=== PATIENT | female | born 1950 | race Two or more races ===

== ENCOUNTER 2017-09-01 01:14 | Emergency (ER) | payer MEDICARE ==
[~2017-09-01] VITALS: Ht 154.9 cm; Wt 59.0 kg
[~2017-09-01 01:14] MED LIST: CITA20TA3 PO; FER325T PO; FLUC100T34 PO; FURO20TA PO; INSLANTI SC; LACT10SO66 PO; MUPI2OIN10 EACHNOSTRI; PANT40T PO; PRO20T PO; SACC250C PO; SPIR100T21 PO; SPIR50TA23 PO
[2017-09-01 01:29] VITALS: BP 151/83
[2017-09-01 01:43] LABS: Eosinophils # (auto) 0.5 uL; Eosinophils % (auto) 7.6 % (0.0-7.0); Hemoglobin 8.2 g/dL (12.2-16.2); Monocytes # (auto) 0.4 uL; Neutrophils # (auto) 4.9 uL; Platelet Count (auto) 136 10^3/uL (140-450)
[2017-09-01 01:45] LABS: Basophils # (auto) 0 uL; Basophils % (auto) 0.6 % (0.0-2.0); Hematocrit 25.2 % (36.0-46.0); Lymphocytes # (auto) 0.9 uL; Lymphocytes % (auto) 13.7 % (10.0-50.0); Mean Corpuscular Hemoglobin 27.3 pg (28.0-32.0); Mean Corpuscular Hgb Conc. 32.6 g/dL (32.0-36.0); Mean Corpuscular Volume 83.8 fL (80.0-100.0); Mean Platelet Volume 8.2 fL (6.9-10.8); Monocytes % (auto) 5.6 % (0.0-12.0); Neutrophils % (auto) 72.5 % (37.0-80.0); Red Cell Distribution Width 15.9 % (11.8-14.3); White Blood Cell 6.7 10^3/uL (4.4-10.8)
[2017-09-01 01:58] LABS: Albumin 2.3 g/dL (3.4-5.0); BUN/Creatinine Ratio 14.9; Calcium 7.8 mg/dL (8.5-10.1); Potassium 4.1 mmol/L (3.5-5.1)
[2017-09-01 02:05] LABS: Bilirubin, Total 0.3 mg/dL (0.2-1.0); Total Protein 7.8 g/dL (6.4-8.2)
== END 2017-09-01 03:40 | disposition left against medical advice (07) ==
LOC: ER 01:14
DX: R10.9 Unspecified abdominal pain (principal); Z53.21 Procedure and treatment not carried out due to patient leaving prior to being seen by health care provider
CPT/HCPCS: 36415; 80053; 82010; 85025

== ENCOUNTER 2017-11-27 02:17 | Inpatient (IN) | payer MEDICARE ==
[~2017-11-27] VITALS: Ht 152.4 cm; Wt 60.6 kg
[2017-11-27] VITALS (11 sets, daily range): BP systolic 138–188; BP diastolic 76–100
[2017-11-27 04:37] LABS: Basophils # (auto) 0 uL; Eosinophils # (auto) 0.2 uL; Lymphocytes # (auto) 0.7 uL; Mean Corpuscular Hemoglobin 26.5 pg (28.0-32.0)
[2017-11-27 04:39] LABS: Eosinophils % (auto) 4.6 % (0.0-7.0); Hematocrit 19.2 % (36.0-46.0); Lymphocytes % (auto) 14.3 % (10.0-50.0); Mean Corpuscular Hgb Conc. 32.4 g/dL (32.0-36.0); Monocytes # (auto) 0.3 uL; Monocytes % (auto) 6.7 % (0.0-12.0); Neutrophils # (auto) 3.5 uL; Neutrophils % (auto) 73.4 % (37.0-80.0); Platelet Count (auto) 104 10^3/uL (140-450); Red Blood Cells 2.34 10^6/uL (4.0-5.20); Red Cell Distribution Width 16.2 % (11.8-14.3); White Blood Cell 4.8 10^3/uL (4.4-10.8)
[2017-11-27 04:42] LABS: Hemoglobin 6.2 g/dL (12.2-16.2)
[2017-11-27 04:56] LABS: INR 1.05 (0.9-1.15); Partial Thromboplastin Time 29.4 sec (22.64-33.71); Prothrombin Time 11.5 sec (9.37-12.3)
[2017-11-27 05:08] LABS: Alanine Aminotransferase 30 U/L (13-56); Albumin 2.5 g/dL (3.4-5.0); Alkaline Phosphatase 326 U/L (45-117); Amylase 57 U/L (25-115); Anion Gap 9 (5-15); Aspartate Aminotransferase 34 U/L (15-37); BUN/Creatinine Ratio 18.9; Bilirubin, Total 0.3 mg/dL (0.2-1.0); Blood Urea Nitrogen 28 mg/dL (7-18); Calcium 7.9 mg/dL (8.5-10.1); Carbon Dioxide 18 mmol/L (21-32); Chloride 108 mmol/L (98-107); GFR African American 45 mL/min; GFR Non-African American 38 mL/min; Glucose 327 mg/dL (74-106); Lipase 173 U/L (73-393); Magnesium 2.4 mg/dL (1.6-2.6); Potassium 3.9 mmol/L (3.5-5.1); Sodium 135 mmol/L (136-145); Total Protein 7.7 g/dL (6.4-8.2)
[2017-11-27] MEDS ORDERED: MORPHINE SULFATE 4 MG/ML SYR/VIAL IV ONE (06:30)
[2017-11-27] MEDS ORDERED: ONDANSETRON HCL 4 MG/2 ML VIAL IV ONE (06:30)
[2017-11-27] MEDS ORDERED: TEMAZEPAM 15 MG CAP PO PRN (09:15)
[2017-11-27] MEDS ORDERED: ONDANSETRON HCL 4 MG/2 ML VIAL IV PRN (09:15)
[2017-11-27] MEDS ORDERED: ACETAMINOPHEN 325 MG TAB PO PRN (09:15)
[2017-11-27] MEDS ORDERED: MORPHINE SULFATE 4 MG/ML SYR/VIAL IV PRN (09:15)
[2017-11-27] MEDS ORDERED: DEXTROSE (50%) 50ML SYRG IV PRN (09:15)
[2017-11-27] MEDS ORDERED: FUROSEMIDE 20 MG TAB PO ONE (09:15)
[2017-11-27] MEDS ORDERED: SPIRONOLACTONE 25 MG TAB PO ONE (09:15)
[2017-11-27] MEDS ORDERED: NITROGLYCERIN 0.4 MG SL TAB SL PRN (09:15)
[2017-11-27] MEDS ORDERED: FAMOTIDINE 20 MG TAB PO SCH (10:00)
[2017-11-27] MEDS: FAMOTIDINE 20 MG TAB PO SCH (10:30)
[2017-11-27] MEDS: LACTULOSE 20Gm/30ML SOLN PO SCH (10:30)
[2017-11-27] MEDS: MULTIPLE VITAMIN TAB PO SCH (10:31)
[2017-11-27 10:50] LABS: Urine Bacteria NONE SEEN /hpf (None Seen); Urine Blood 1+ /uL (Negative); Urine Specific Gravity 1.011 (1.001-1.035); Urine WBC 2 /hpf (0 - 5)
[2017-11-27] MEDS: ACCU-CHEK COMFORT CURVE STRIP VI SCH ×3 (11:43→22:44)
[2017-11-27] MEDS: InsuLIN REG 1unit/0.01ml Soln (100units/ml) SC SCH ×3 (11:49→22:43)
[2017-11-27] MEDS: Boost Glucose Control 8 Ounces PO SCH ×2 (13:04→18:39)
[2017-11-27] MEDS: SODIUM CHLORIDE 0.9% 1,000 ML IV SCH (16:25)
[2017-11-27] MEDS: SPIRONOLACTONE 25 MG TAB PO SCH (17:32)
[2017-11-27] MEDS: FUROSEMIDE 20 MG TAB PO SCH (17:32)
[2017-11-27] MEDS: MORPHINE SULFATE 4 MG/ML SYR/VIAL IV PRN (17:33)
[2017-11-27] MEDS: INSULIN LANTUS (GLARGINE) 1 /0.01ml (100units/ml) SC SCH (22:44)
[2017-11-28] MEDS: SODIUM CHLORIDE 0.9% 1,000 ML IV SCH ×2 (01:27→18:11)
[2017-11-28] MEDS: MORPHINE SULFATE 4 MG/ML SYR/VIAL IV PRN ×2 (03:38→19:55)
[2017-11-28 05:30] VITALS: BP 137/58
[2017-11-28] MEDS: SPIRONOLACTONE 25 MG TAB PO SCH ×2 (06:39→18:10)
[2017-11-28] MEDS: FUROSEMIDE 20 MG TAB PO SCH ×2 (06:40→18:11)
[2017-11-28] MEDS: ACCU-CHEK COMFORT CURVE STRIP VI SCH ×4 (06:40→22:10)
[2017-11-28] MEDS: InsuLIN REG 1unit/0.01ml Soln (100units/ml) SC SCH ×4 (06:40→22:10)
[2017-11-28 08:00] VITALS: BP 132/74
[2017-11-28 08:07] LABS: Basophils # (auto) 0 uL; Basophils % (auto) 0.5 % (0.0-2.0); Eosinophils # (auto) 0.1 uL; Eosinophils % (auto) 2.6 % (0.0-7.0); Hematocrit 28.5 % (36.0-46.0); Hemoglobin 9.5 g/dL (12.2-16.2); Lymphocytes # (auto) 0.8 uL; Lymphocytes % (auto) 15.3 % (10.0-50.0); Mean Corpuscular Hemoglobin 28.2 pg (28.0-32.0); Mean Corpuscular Hgb Conc. 33.4 g/dL (32.0-36.0); Mean Corpuscular Volume 84.6 fL (80.0-100.0); Monocytes # (auto) 0.4 uL; Monocytes % (auto) 8.6 % (0.0-12.0); Neutrophils # (auto) 3.8 uL; Nucleated Red Blood Cells % 0.2 %; Platelet Count (auto) 94 10^3/uL (140-450); Potassium 4.4 mmol/L (3.5-5.1); Red Blood Cells 3.37 10^6/uL (4.0-5.20); Red Cell Distribution Width 16.8 % (11.8-14.3); White Blood Cell 5.2 10^3/uL (4.4-10.8)
[2017-11-28 08:20] LABS: Albumin 2.3 g/dL (3.4-5.0); Bilirubin, Total 0.5 mg/dL (0.2-1.0); Calcium 7.9 mg/dL (8.5-10.1)
[2017-11-28 08:30] VITALS: BP 132/74
[2017-11-28] MEDS: Boost Glucose Control 8 Ounces PO SCH ×3 (10:49→18:10)
[2017-11-28] MEDS: FAMOTIDINE 20 MG TAB PO SCH (10:50)
[2017-11-28] MEDS: LACTULOSE 20Gm/30ML SOLN PO SCH (10:50)
[2017-11-28] MEDS: MULTIPLE VITAMIN TAB PO SCH (10:50)
[2017-11-28 13:00] VITALS: BP 146/72
[2017-11-28 17:00] VITALS: BP 159/76
[2017-11-28 18:29] LABS: Hematocrit 38.1 % (36.0-46.0)
[2017-11-28 21:37] VITALS: BP 136/68
[2017-11-28] MEDS: INSULIN LANTUS (GLARGINE) 1 /0.01ml (100units/ml) SC SCH (22:10)
[2017-11-29] MEDS: MORPHINE SULFATE 4 MG/ML SYR/VIAL IV PRN ×2 (01:39→05:58)
[2017-11-29 05:53] VITALS: BP 111/89
[2017-11-29] MEDS: SPIRONOLACTONE 25 MG TAB PO SCH ×2 (05:57→17:34)
[2017-11-29] MEDS: FUROSEMIDE 20 MG TAB PO SCH ×2 (05:58→17:34)
[2017-11-29] MEDS: ACCU-CHEK COMFORT CURVE STRIP VI SCH ×4 (05:58→22:08)
[2017-11-29] MEDS: InsuLIN REG 1unit/0.01ml Soln (100units/ml) SC SCH ×4 (05:58→22:07)
[2017-11-29] MEDS: Boost Glucose Control 8 Ounces PO SCH ×3 (07:39→17:32)
[2017-11-29 09:00] VITALS: BP 131/65
[2017-11-29] MEDS: MULTIPLE VITAMIN TAB PO SCH (10:35)
[2017-11-29] MEDS: LACTULOSE 20Gm/30ML SOLN PO SCH (10:35)
[2017-11-29] MEDS: FAMOTIDINE 20 MG TAB PO SCH (10:36)
[2017-11-29 11:22] LABS: Basophils # (auto) 0 uL; Basophils % (auto) 0.6 % (0.0-2.0); Eosinophils # (auto) 0.2 uL; Eosinophils % (auto) 4.9 % (0.0-7.0); Hematocrit 28.5 % (36.0-46.0); Hemoglobin 9.5 g/dL (12.2-16.2); Lymphocytes # (auto) 0.8 uL; Lymphocytes % (auto) 16.2 % (10.0-50.0); Mean Corpuscular Hemoglobin 27.8 pg (28.0-32.0); Mean Corpuscular Hgb Conc. 33.2 g/dL (32.0-36.0); Mean Corpuscular Volume 83.6 fL (80.0-100.0); Monocytes # (auto) 0.5 uL; Monocytes % (auto) 11.5 % (0.0-12.0); Neutrophils # (auto) 3.2 uL; Neutrophils % (auto) 66.8 % (37.0-80.0); Platelet Count (auto) 101 10^3/uL (140-450); Red Blood Cells 3.41 10^6/uL (4.0-5.20); Red Cell Distribution Width 16.7 % (11.8-14.3); White Blood Cell 4.7 10^3/uL (4.4-10.8)
[2017-11-29 11:45] LABS: BUN/Creatinine Ratio 20.8; Calcium 7.7 mg/dL (8.5-10.1); Potassium 4.2 mmol/L (3.5-5.1)
[2017-11-29] MEDS: HYDROcodone-ACET 5/325MG TAB PO PRN ×2 (12:16→18:56)
[2017-11-29 13:00] VITALS: BP 123/59
[2017-11-29] MEDS: SODIUM CHLORIDE 0.9% 1,000 ML IV SCH (16:24)
[2017-11-29 17:04] VITALS: BP 115/58
[2017-11-29 20:08] LABS: Hematocrit 28.4 % (36.0-46.0); Hemoglobin 9.3 g/dL (12.2-16.2)
[2017-11-29 22:00] VITALS: BP 116/60
[2017-11-29] MEDS: INSULIN LANTUS (GLARGINE) 1 /0.01ml (100units/ml) SC SCH (22:08)
[2017-11-30] MEDS: HYDROcodone-ACET 5/325MG TAB PO PRN ×3 (00:45→10:51)
[2017-11-30] MEDS: SODIUM CHLORIDE 0.9% 1,000 ML IV SCH ×2 (03:43→18:30)
[2017-11-30 04:53] VITALS: BP 123/67
[2017-11-30] MEDS: FUROSEMIDE 20 MG TAB PO SCH ×2 (06:31→17:30)
[2017-11-30] MEDS: SPIRONOLACTONE 25 MG TAB PO SCH ×2 (06:32→17:29)
[2017-11-30] MEDS: ACCU-CHEK COMFORT CURVE STRIP VI SCH ×4 (06:32→22:05)
[2017-11-30] MEDS: InsuLIN REG 1unit/0.01ml Soln (100units/ml) SC SCH ×4 (06:32→22:22)
[2017-11-30] MEDS: Boost Glucose Control 8 Ounces PO SCH ×3 (08:00→20:29)
[2017-11-30 09:00] VITALS: BP 110/60
[2017-11-30] MEDS: LACTULOSE 20Gm/30ML SOLN PO SCH (10:02)
[2017-11-30] MEDS: FAMOTIDINE 20 MG TAB PO SCH (10:03)
[2017-11-30] MEDS: MULTIPLE VITAMIN TAB PO SCH (10:03)
[2017-11-30 10:57] LABS: Basophils # (auto) 0 uL; Basophils % (auto) 0.7 % (0.0-2.0); Eosinophils # (auto) 0.3 uL; Eosinophils % (auto) 8.1 % (0.0-7.0); Hematocrit 29.4 % (36.0-46.0); Hemoglobin 9.6 g/dL (12.2-16.2); Lymphocytes # (auto) 0.6 uL; Lymphocytes % (auto) 15.2 % (10.0-50.0); Mean Corpuscular Hemoglobin 27.7 pg (28.0-32.0); Mean Corpuscular Hgb Conc. 32.6 g/dL (32.0-36.0); Mean Corpuscular Volume 84.8 fL (80.0-100.0); Monocytes # (auto) 0.5 uL; Monocytes % (auto) 11.4 % (0.0-12.0); Neutrophils # (auto) 2.6 uL; Neutrophils % (auto) 64.6 % (37.0-80.0); Nucleated Red Blood Cells % 0.1 %; Platelet Count (auto) 95 10^3/uL (140-450); Red Blood Cells 3.47 10^6/uL (4.0-5.20); Red Cell Distribution Width 17.1 % (11.8-14.3)
[2017-11-30 11:14] LABS: BUN/Creatinine Ratio 22.4; Calcium 7.6 mg/dL (8.5-10.1); Potassium 4.5 mmol/L (3.5-5.1)
[2017-11-30 13:00] VITALS: BP 148/72
[2017-11-30] MEDS: MORPHINE SULFATE 4 MG/ML SYR/VIAL IV PRN ×2 (14:27→22:30)
[2017-11-30 22:00] VITALS: BP 160/86
[2017-11-30] MEDS: INSULIN LANTUS (GLARGINE) 1 /0.01ml (100units/ml) SC SCH (22:23)
[2017-12-01] MEDS: MORPHINE SULFATE 4 MG/ML SYR/VIAL IV PRN ×4 (03:49→21:56)
[2017-12-01 05:00] VITALS: BP 142/76
[2017-12-01] MEDS: SPIRONOLACTONE 25 MG TAB PO SCH ×2 (06:17→17:34)
[2017-12-01] MEDS: FUROSEMIDE 20 MG TAB PO SCH ×2 (06:18→17:34)
[2017-12-01] MEDS: ACCU-CHEK COMFORT CURVE STRIP VI SCH ×4 (06:55→21:55)
[2017-12-01] MEDS: InsuLIN REG 1unit/0.01ml Soln (100units/ml) SC SCH ×4 (06:55→21:55)
[2017-12-01] MEDS: Boost Glucose Control 8 Ounces PO SCH ×3 (08:05→18:13)
[2017-12-01 09:00] VITALS: BP 125/55
[2017-12-01] MEDS: LACTULOSE 20Gm/30ML SOLN PO SCH (10:00)
[2017-12-01] MEDS: FAMOTIDINE 20 MG TAB PO SCH (10:25)
[2017-12-01] MEDS: MULTIPLE VITAMIN TAB PO SCH (10:26)
[2017-12-01] MEDS ORDERED: DEXTROSE (50%) 50ML SYRG IV PRN (11:00)
[2017-12-01] MEDS: SODIUM CHLORIDE 0.9% 1,000 ML IV SCH (11:59)
[2017-12-01 13:00] VITALS: BP 165/76
[2017-12-01 17:00] VITALS: BP 155/97
[2017-12-01] MEDS: INSULIN 70/30 1unit/0.01ml Susp (100units/ml) SC SCH (18:17)
[2017-12-01] MEDS: INSULIN LANTUS (GLARGINE) 1 /0.01ml (100units/ml) SC SCH (21:55)
[2017-12-01 22:00] VITALS: BP 138/74
[2017-12-02] MEDS: HYDROcodone-ACET 5/325MG TAB PO PRN ×2 (00:56→11:50)
[2017-12-02] MEDS: MORPHINE SULFATE 4 MG/ML SYR/VIAL IV PRN ×3 (03:43→23:16)
[2017-12-02] MEDS: SPIRONOLACTONE 25 MG TAB PO SCH ×2 (05:56→17:46)
[2017-12-02] MEDS: FUROSEMIDE 20 MG TAB PO SCH ×2 (05:57→17:47)
[2017-12-02 06:06] VITALS: BP 117/67
[2017-12-02] MEDS: ACCU-CHEK COMFORT CURVE STRIP VI SCH ×4 (06:35→21:55)
[2017-12-02] MEDS: InsuLIN REG 1unit/0.01ml Soln (100units/ml) SC SCH ×4 (06:35→21:54)
[2017-12-02 07:41] LABS: Basophils # (auto) 0 uL; Basophils % (auto) 0.7 % (0.0-2.0); Eosinophils # (auto) 0.3 uL; Eosinophils % (auto) 7.6 % (0.0-7.0); Hematocrit 28.5 % (36.0-46.0); Hemoglobin 9.7 g/dL (12.2-16.2); Lymphocytes # (auto) 0.8 uL; Lymphocytes % (auto) 19.9 % (10.0-50.0); Mean Corpuscular Hemoglobin 28.1 pg (28.0-32.0); Mean Corpuscular Volume 82.8 fL (80.0-100.0); Monocytes # (auto) 0.5 uL; Monocytes % (auto) 13.7 % (0.0-12.0); Neutrophils # (auto) 2.3 uL; Neutrophils % (auto) 58.1 % (37.0-80.0); Platelet Count (auto) 99 10^3/uL (140-450); Red Blood Cells 3.44 10^6/uL (4.0-5.20); Red Cell Distribution Width 16.5 % (11.8-14.3); White Blood Cell 3.9 10^3/uL (4.4-10.8)
[2017-12-02 07:59] LABS: BUN/Creatinine Ratio 27.5; Potassium 4.5 mmol/L (3.5-5.1)
[2017-12-02] MEDS: Boost Glucose Control 8 Ounces PO SCH ×3 (08:08→17:46)
[2017-12-02] MEDS: INSULIN 70/30 1unit/0.01ml Susp (100units/ml) SC SCH ×2 (08:09→17:53)
[2017-12-02 09:00] VITALS: BP 126/68
[2017-12-02] MEDS: MULTIPLE VITAMIN TAB PO SCH (10:21)
[2017-12-02] MEDS: FAMOTIDINE 20 MG TAB PO SCH (10:21)
[2017-12-02] MEDS: LACTULOSE 20Gm/30ML SOLN PO SCH (10:21)
[2017-12-02] MEDS: SODIUM CHLORIDE 0.9% 1,000 ML IV SCH (11:16)
[2017-12-02 13:00] VITALS: BP 131/69
[2017-12-02 17:00] VITALS: BP 156/78
[2017-12-02] MEDS: PANTOPRAZOLE 40 MG TAB PO SCH (21:53)
[2017-12-02] MEDS: INSULIN LANTUS (GLARGINE) 1 /0.01ml (100units/ml) SC SCH (21:54)
[2017-12-02 22:00] VITALS: BP 129/70
[2017-12-02] MEDS: PROMETHAZINE HCL 25 MG/ML 1ML IV PRN (23:16)
[2017-12-03] MEDS: HYDROcodone-ACET 5/325MG TAB PO PRN (03:31)
[2017-12-03 05:00] VITALS: BP 132/63
[2017-12-03] MEDS: MORPHINE SULFATE 4 MG/ML SYR/VIAL IV PRN ×3 (06:03→20:45)
[2017-12-03] MEDS: SPIRONOLACTONE 25 MG TAB PO SCH ×2 (06:03→18:03)
[2017-12-03] MEDS: FUROSEMIDE 20 MG TAB PO SCH ×2 (06:03→18:05)
[2017-12-03] MEDS: InsuLIN REG 1unit/0.01ml Soln (100units/ml) SC SCH ×4 (06:12→21:59)
[2017-12-03] MEDS: ACCU-CHEK COMFORT CURVE STRIP VI SCH ×4 (06:12→22:00)
[2017-12-03 06:40] LABS: Basophils # (auto) 0 uL; Basophils % (auto) 0.8 % (0.0-2.0); Eosinophils # (auto) 0.3 uL; Eosinophils % (auto) 7.5 % (0.0-7.0); Hematocrit 31.3 % (36.0-46.0); Hemoglobin 10.3 g/dL (12.2-16.2); Lymphocytes % (auto) 25.8 % (10.0-50.0); Mean Corpuscular Hemoglobin 27.5 pg (28.0-32.0); Mean Corpuscular Volume 83.3 fL (80.0-100.0); Monocytes # (auto) 0.5 uL; Monocytes % (auto) 11.9 % (0.0-12.0); Neutrophils # (auto) 2.2 uL; Nucleated Red Blood Cells % 0.2 %; Platelet Count (auto) 112 10^3/uL (140-450); Red Blood Cells 3.76 10^6/uL (4.0-5.20); Red Cell Distribution Width 17.4 % (11.8-14.3)
[2017-12-03 07:12] LABS: Calcium 8.4 mg/dL (8.5-10.1); Potassium 4.6 mmol/L (3.5-5.1)
[2017-12-03] MEDS: INSULIN 70/30 1unit/0.01ml Susp (100units/ml) SC SCH ×2 (08:42→18:04)
[2017-12-03] MEDS: Boost Glucose Control 8 Ounces PO SCH ×3 (08:43→18:04)
[2017-12-03] MEDS: SODIUM CHLORIDE 0.9% 1,000 ML IV SCH ×2 (08:44→15:32)
[2017-12-03 09:30] VITALS: BP 127/57
[2017-12-03] MEDS: LACTULOSE 20Gm/30ML SOLN PO SCH (10:00)
[2017-12-03] MEDS: MULTIPLE VITAMIN TAB PO SCH (10:23)
[2017-12-03] MEDS: PANTOPRAZOLE 40 MG TAB PO SCH ×2 (10:23→21:58)
[2017-12-03 13:00] VITALS: BP 125/91
[2017-12-03] MEDS: PROMETHAZINE HCL 25 MG/ML 1ML IV PRN ×2 (15:56→20:44)
[2017-12-03 17:07] VITALS: BP 122/61
[2017-12-03] MEDS: INSULIN LANTUS (GLARGINE) 1 /0.01ml (100units/ml) SC SCH (22:00)
[2017-12-03 22:21] VITALS: BP 123/48
[2017-12-04] MEDS: MORPHINE SULFATE 4 MG/ML SYR/VIAL IV PRN (03:54)
[2017-12-04] MEDS: PROMETHAZINE HCL 25 MG/ML 1ML IV PRN (03:54)
[2017-12-04 05:25] VITALS: BP 142/77
[2017-12-04] MEDS: SPIRONOLACTONE 25 MG TAB PO SCH (05:49)
[2017-12-04] MEDS: FUROSEMIDE 20 MG TAB PO SCH (05:52)
[2017-12-04] MEDS: ACCU-CHEK COMFORT CURVE STRIP VI SCH ×2 (05:55→12:09)
[2017-12-04] MEDS: InsuLIN REG 1unit/0.01ml Soln (100units/ml) SC SCH ×2 (06:19→11:30)
[2017-12-04 08:00] VITALS: BP 141/74
[2017-12-04 08:10] LABS: Basophils # (auto) 0 uL; Basophils % (auto) 1.1 % (0.0-2.0); Eosinophils # (auto) 0.2 uL; Eosinophils % (auto) 6.6 % (0.0-7.0); Hematocrit 28.7 % (36.0-46.0); Hemoglobin 9.4 g/dL (12.2-16.2); Lymphocytes # (auto) 0.9 uL; Lymphocytes % (auto) 25.5 % (10.0-50.0); Mean Corpuscular Hemoglobin 27.6 pg (28.0-32.0); Mean Corpuscular Hgb Conc. 32.9 g/dL (32.0-36.0); Monocytes # (auto) 0.4 uL; Neutrophils % (auto) 55.8 % (37.0-80.0); Nucleated Red Blood Cells % 0.1 %; Platelet Count (auto) 101 10^3/uL (140-450); Red Blood Cells 3.42 10^6/uL (4.0-5.20); Red Cell Distribution Width 16.8 % (11.8-14.3); White Blood Cell 3.6 10^3/uL (4.4-10.8)
[2017-12-04 08:34] LABS: BUN/Creatinine Ratio 28.4; Calcium 7.7 mg/dL (8.5-10.1); Potassium 5.3 mmol/L (3.5-5.1)
[2017-12-04] MEDS: LACTULOSE 20Gm/30ML SOLN PO SCH (10:00)
[2017-12-04] MEDS: SODIUM CHLORIDE 0.9% 1,000 ML IV SCH (10:57)
[2017-12-04] MEDS: INSULIN 70/30 1unit/0.01ml Susp (100units/ml) SC SCH (10:57)
[2017-12-04] MEDS: Boost Glucose Control 8 Ounces PO SCH ×2 (10:57→12:10)
[2017-12-04] MEDS: MULTIPLE VITAMIN TAB PO SCH (10:58)
[2017-12-04] MEDS: PANTOPRAZOLE 40 MG TAB PO SCH (10:58)
[2017-12-04 12:00] VITALS: BP 123/68
[2017-12-04] MEDS: HYDROcodone-ACET 5/325MG TAB PO PRN (14:43)
== END 2017-12-04 17:50 | disposition home or self-care (01) | DRG 432 ==
LOC: ER 02:19 → TELE 02:20 → TELE-WESTW 14:42 → WEST WING 12-04 16:13
PROVIDERS: ADMIT Internal Medicine; ATTEND Family Medicine
PROC: 30233N1 Transfusion of Nonautologous Red Blood Cells into Peripheral Vein, Percutaneous Approach (ICD-10-PCS; principal; 2017-11-27)
DX: K74.60 Unspecified cirrhosis of liver (principal); N18.6 End stage renal disease; E44.0 Moderate protein-calorie malnutrition; J90 Pleural effusion, not elsewhere classified; E11.21 Type 2 diabetes mellitus with diabetic nephropathy; D69.6 Thrombocytopenia, unspecified; I13.11 Hypertensive heart and chronic kidney disease without heart failure, with stage 5 chronic kidney disease, or end stage renal disease; E11.22 Type 2 diabetes mellitus with diabetic chronic kidney disease; E11.65 Type 2 diabetes mellitus with hyperglycemia; K92.2 Gastrointestinal hemorrhage, unspecified; E87.1 Hypo-osmolality and hyponatremia; R18.8 Other ascites; D64.9 Anemia, unspecified; E78.5 Hyperlipidemia, unspecified; E83.51 Hypocalcemia; F32.9 Major depressive disorder, single episode, unspecified; J44.9 Chronic obstructive pulmonary disease, unspecified; K21.9 Gastro-esophageal reflux disease without esophagitis; K42.9 Umbilical hernia without obstruction or gangrene; K72.90 Hepatic failure, unspecified without coma; M19.90 Unspecified osteoarthritis, unspecified site; Z82.49 Family history of ischemic heart disease and other diseases of the circulatory system; Z86.14 Personal history of Methicillin resistant Staphylococcus aureus infection; Z87.442 Personal history of urinary calculi; Z90.49 Acquired absence of other specified parts of digestive tract; Z68.26 Body mass index [BMI] 26.0-26.9, adult
CPT/HCPCS: 36415; 36430; 71045; 74176; 76705; 80048; 80053; 81001; 82140; 82150; 82962; 83036; 83690; 83735; 84443; 84484; 85014; 85018; 85025; 85610; 85730; 86850; 86900; 86901; 86920; 86922; 87081; 87086; 87493; 93005; 93306; 96361; 96374; 96375; J1815; J2405

== ENCOUNTER 2017-12-06 11:26 | Inpatient (IN) | payer MEDICARE, MEDICAID ==
[~2017-12-06] VITALS: Ht 167.6 cm; Wt 63.3 kg
[2017-12-06 12:35] LABS: Basophils # (auto) 0 uL
[2017-12-06 12:41] LABS: Basophils % (auto) 0.8 % (0.0-2.0); Eosinophils # (auto) 0.1 uL; Eosinophils % (auto) 1.8 % (0.0-7.0); Hematocrit 31.3 % (36.0-46.0); Hemoglobin 10.4 g/dL (12.2-16.2); Lymphocytes # (auto) 0.5 uL; Lymphocytes % (auto) 11.1 % (10.0-50.0); Mean Corpuscular Hemoglobin 27.3 pg (28.0-32.0); Mean Corpuscular Hgb Conc. 33.1 g/dL (32.0-36.0); Mean Corpuscular Volume 82.6 fL (80.0-100.0); Monocytes # (auto) 0.4 uL; Monocytes % (auto) 7.5 % (0.0-12.0); Neutrophils # (auto) 3.8 uL; Neutrophils % (auto) 78.8 % (37.0-80.0); Nucleated Red Blood Cells % 0.1 %; Platelet Count (auto) 115 10^3/uL (140-450); Red Blood Cells 3.79 10^6/uL (4.0-5.20); Red Cell Distribution Width 16.6 % (11.8-14.3); White Blood Cell 4.8 10^3/uL (4.4-10.8)
[2017-12-06 12:53] LABS: Calcium 8.6 mg/dL (8.5-10.1); Chloride 110 mmol/L (98-107); Potassium 4.9 mmol/L (3.5-5.1); Sodium 138 mmol/L (136-145)
[2017-12-06 12:58] LABS: Alanine Aminotransferase 30 U/L (13-56); Albumin 2.8 g/dL (3.4-5.0); Alkaline Phosphatase 278 U/L (45-117); Anion Gap 8 (5-15); Aspartate Aminotransferase 30 U/L (15-37); BUN/Creatinine Ratio 26.4; Bilirubin, Total 0.4 mg/dL (0.2-1.0); Blood Alcohol < 3.0 mg/dL (0-5); Blood Urea Nitrogen 55 mg/dL (7-18); Carbon Dioxide 20 mmol/L (21-32); GFR African American 31 mL/min; GFR Non-African American 25 mL/min; Glucose 313 mg/dL (74-106); Magnesium 2.4 mg/dL (1.6-2.6); Total Protein 8.3 g/dL (6.4-8.2)
[2017-12-06] MEDS ORDERED: SODIUM CHLORIDE 0.9% 1,000 ML IV ONE (13:15)
[2017-12-06] MEDS ORDERED: SODIUM CHLORIDE 0.9% 1,000 ML IVB ONE (13:25)
[2017-12-06 13:28] LABS: Urine Bacteria NONE SEEN /hpf (None Seen); Urine Blood Negative /uL (Negative); Urine Specific Gravity 1.011 (1.001-1.035); Urine WBC 1 /hpf (0 - 5)
[2017-12-06 13:43] LABS: Alcohol, Urine < 3.0 mg/dL (0-5); Amphetamine Screen, Urine NEGATIVE (NEGATIVE); Barbiturate Scree,Urine NEGATIVE (NEGATIVE); Benzodiazephine Screen, Urine NEGATIVE (NEGATIVE); Cannabinoid Screen, Urine NEGATIVE (NEGATIVE); Cocaine Screen, Urine NEGATIVE (NEGATIVE); Opiate Scree,Urine NEGATIVE (NEGATIVE); Phencyclidine Screen, Urine NEGATIVE (NEGATIVE)
[2017-12-06 13:51] LABS: INR 1.08 (0.9-1.15); Partial Thromboplastin Time 28.5 sec (22.64-33.71); Prothrombin Time 11.8 sec (9.37-12.3)
[2017-12-06 14:16] LABS: Lactic Acid w/Reflex 2.1 mmol/L (0.4-2.0)
[2017-12-06] MEDS ORDERED: LACTULOSE 20Gm/30ML SOLN PR ONE (16:15)
[2017-12-06] MEDS ORDERED: HYDROcodone-ACET 5/325MG TAB PO PRN (16:15)
[2017-12-06] MEDS ORDERED: DOCUSATE SOD 100 MG CAP PO PRN (16:15)
[2017-12-06] MEDS ORDERED: ONDANSETRON HCL 4 MG/2 ML VIAL IV PRN (16:15)
[2017-12-06] MEDS ORDERED: DEXTROSE (50%) 50ML SYRG IV PRN (16:15)
[2017-12-06] MEDS: SODIUM CHLORIDE 0.9% 1,000 ML IV SCH (16:27)
[2017-12-06] MEDS: ACCU-CHEK COMFORT CURVE STRIP VI SCH ×2 (17:06→22:25)
[2017-12-06] MEDS: LACTULOSE 20Gm/30ML SOLN PO SCH (17:49)
[2017-12-06] MEDS: InsuLIN REG 1unit/0.01ml Soln (100units/ml) SC SCH ×2 (17:49→22:30)
[2017-12-06] MEDS: SPIRONOLACTONE 25 MG TAB PO SCH (17:50)
[2017-12-06] MEDS: LACTULOSE 20Gm/30ML SOLN PR SCH (17:50)
[2017-12-06] MEDS: Boost Glucose Control 8 Ounces PO SCH (18:54)
[2017-12-06 22:00] VITALS: BP 124/76
[2017-12-06] MEDS: PROPRANOLOL HCL 20 MG TAB PO SCH (22:00)
[2017-12-06] MEDS: FAMOTIDINE 20 MG TAB PO SCH (22:00)
[2017-12-07] VITALS (7 sets, daily range): BP systolic 104–178; BP diastolic 67–114
[2017-12-07] MEDS: LACTULOSE 20Gm/30ML SOLN PR SCH ×4 (00:44→17:58)
[2017-12-07] MEDS: LACTULOSE 20Gm/30ML SOLN PO SCH ×5 (00:50→17:41)
[2017-12-07] MEDS: SPIRONOLACTONE 25 MG TAB PO SCH ×2 (06:05→17:41)
[2017-12-07] MEDS: ACCU-CHEK COMFORT CURVE STRIP VI SCH ×4 (06:05→22:28)
[2017-12-07] MEDS: InsuLIN REG 1unit/0.01ml Soln (100units/ml) SC SCH ×4 (06:55→22:27)
[2017-12-07] MEDS ORDERED: traMADol HCL 50 MG TAB PO ONE (07:00)
[2017-12-07 07:13] LABS: Basophils # (auto) 0 uL; Basophils % (auto) 0.9 % (0.0-2.0); Eosinophils # (auto) 0.1 uL; Eosinophils % (auto) 1.8 % (0.0-7.0); Hematocrit 35.6 % (36.0-46.0); Hemoglobin 11.3 g/dL (12.2-16.2); Lymphocytes # (auto) 0.6 uL; Lymphocytes % (auto) 12.1 % (10.0-50.0); Mean Corpuscular Hemoglobin 27.3 pg (28.0-32.0); Mean Corpuscular Hgb Conc. 31.7 g/dL (32.0-36.0); Mean Corpuscular Volume 86.2 fL (80.0-100.0); Monocytes # (auto) 0.3 uL; Monocytes % (auto) 6.4 % (0.0-12.0); Neutrophils # (auto) 3.9 uL; Neutrophils % (auto) 78.8 % (37.0-80.0); Nucleated Red Blood Cells % 0.1 %; Platelet Count (auto) 106 10^3/uL (140-450); Red Blood Cells 4.13 10^6/uL (4.0-5.20); Red Cell Distribution Width 17.1 % (11.8-14.3); White Blood Cell 4.9 10^3/uL (4.4-10.8)
[2017-12-07 07:24] LABS: Albumin 2.7 g/dL (3.4-5.0); BUN/Creatinine Ratio 24.4; Bilirubin, Total 0.6 mg/dL (0.2-1.0); Calcium 8.1 mg/dL (8.5-10.1); Potassium 4.7 mmol/L (3.5-5.1); Total Protein 8.7 g/dL (6.4-8.2)
[2017-12-07] MEDS: Boost Glucose Control 8 Ounces PO SCH ×3 (09:10→17:58)
[2017-12-07] MEDS: SODIUM CHLORIDE 0.9% 1,000 ML IV SCH (09:10)
[2017-12-07] MEDS: CITALOPRAM HYDROBR 20 MG TAB PO SCH (10:29)
[2017-12-07] MEDS: MULTIPLE VITAMIN TAB PO SCH (10:29)
[2017-12-07] MEDS: FAMOTIDINE 20 MG TAB PO SCH (10:29)
[2017-12-07] MEDS: PROPRANOLOL HCL 20 MG TAB PO SCH ×2 (10:29→22:12)
[2017-12-07] MEDS: FUROSEMIDE 20 MG TAB PO SCH (10:30)
[2017-12-07] MEDS: SODIUM BICARBONATE 50ML VIAL 100 ML in D5W 5% 1,000 ML IV SCH ×2 (12:19→22:11)
[2017-12-07] MEDS ORDERED: hydrALAZINE HCL 20 MG/ML VL IV PRN (17:00)
[2017-12-07] MEDS: ACETAMINOPHEN 325 MG TAB PO PRN (17:48)
[2017-12-08] MEDS ORDERED: LORazepam 0.5 MG TAB PO ONE (04:15)
[2017-12-08 05:18] VITALS: BP 162/82
[2017-12-08] MEDS: LACTULOSE 20Gm/30ML SOLN PR SCH ×2 (06:00)
[2017-12-08] MEDS: LACTULOSE 20Gm/30ML SOLN PO SCH ×4 (06:00→17:59)
[2017-12-08 06:38] LABS: Basophils # (auto) 0 uL; Basophils % (auto) 0.6 % (0.0-2.0); Eosinophils # (auto) 0.3 uL; Eosinophils % (auto) 3.7 % (0.0-7.0); Hematocrit 30.6 % (36.0-46.0); Hemoglobin 10.2 g/dL (12.2-16.2); Lymphocytes # (auto) 0.8 uL; Lymphocytes % (auto) 11.3 % (10.0-50.0); Mean Corpuscular Hemoglobin 27.9 pg (28.0-32.0); Mean Corpuscular Hgb Conc. 33.4 g/dL (32.0-36.0); Mean Corpuscular Volume 83.5 fL (80.0-100.0); Monocytes # (auto) 0.5 uL; Monocytes % (auto) 7.7 % (0.0-12.0); Neutrophils # (auto) 5.3 uL; Neutrophils % (auto) 76.7 % (37.0-80.0); Platelet Count (auto) 112 10^3/uL (140-450); Red Blood Cells 3.66 10^6/uL (4.0-5.20); Red Cell Distribution Width 16.6 % (11.8-14.3); White Blood Cell 6.9 10^3/uL (4.4-10.8)
[2017-12-08] MEDS: ACETAMINOPHEN 325 MG TAB PO PRN ×2 (06:43→17:34)
[2017-12-08] MEDS: SPIRONOLACTONE 25 MG TAB PO SCH ×2 (06:43→18:00)
[2017-12-08] MEDS: InsuLIN REG 1unit/0.01ml Soln (100units/ml) SC SCH ×4 (06:44→22:37)
[2017-12-08] MEDS: ACCU-CHEK COMFORT CURVE STRIP VI SCH ×4 (06:44→22:37)
[2017-12-08 06:50] LABS: Potassium 4.4 mmol/L (3.5-5.1)
[2017-12-08 06:56] LABS: Calcium 8.3 mg/dL (8.5-10.1)
[2017-12-08 07:29] VITALS: BP 127/91
[2017-12-08] MEDS: FAMOTIDINE 20 MG TAB PO SCH (09:58)
[2017-12-08] MEDS: MULTIPLE VITAMIN TAB PO SCH (09:59)
[2017-12-08] MEDS: PROPRANOLOL HCL 20 MG TAB PO SCH ×2 (09:59→22:36)
[2017-12-08] MEDS: CITALOPRAM HYDROBR 20 MG TAB PO SCH (10:00)
[2017-12-08] MEDS: FUROSEMIDE 20 MG TAB PO SCH (10:00)
[2017-12-08] MEDS: Boost Glucose Control 8 Ounces PO SCH ×3 (10:01→18:01)
[2017-12-08] MEDS ORDERED: DEXTROSE (50%) 50ML SYRG IV PRN (12:15)
[2017-12-08] MEDS: CHLORHEXIDINE 4% TOPICAL soln 473ML TOP SCH (12:48)
[2017-12-08 13:42] VITALS: BP 125/78
[2017-12-08] MEDS: SODIUM BICARBONATE 50ML VIAL 50 ML in SOD CHL 0.45% 1,000 ML IV SCH ×2 (15:50→23:44)
[2017-12-08 16:35] VITALS: BP 119/54
[2017-12-08 20:00] VITALS: BP 120/73
[2017-12-08 22:01] VITALS: BP 129/73
[2017-12-09 05:00] VITALS: BP 131/61
[2017-12-09] MEDS: LACTULOSE 20Gm/30ML SOLN PO SCH ×6 (05:40→23:28)
[2017-12-09] MEDS: SPIRONOLACTONE 25 MG TAB PO SCH ×2 (05:40→17:39)
[2017-12-09 05:57] LABS: Basophils # (auto) 0 uL; Basophils % (auto) 0.8 % (0.0-2.0); Eosinophils # (auto) 0.3 uL; Eosinophils % (auto) 4.8 % (0.0-7.0); Hematocrit 29.3 % (36.0-46.0); Hemoglobin 9.6 g/dL (12.2-16.2); Lymphocytes # (auto) 0.9 uL; Lymphocytes % (auto) 13.3 % (10.0-50.0); Mean Corpuscular Hemoglobin 27.4 pg (28.0-32.0); Mean Corpuscular Hgb Conc. 32.7 g/dL (32.0-36.0); Mean Corpuscular Volume 83.9 fL (80.0-100.0); Monocytes # (auto) 0.4 uL; Monocytes % (auto) 6.6 % (0.0-12.0); Neutrophils # (auto) 4.8 uL; Neutrophils % (auto) 74.5 % (37.0-80.0); Platelet Count (auto) 113 10^3/uL (140-450); Red Cell Distribution Width 16.5 % (11.8-14.3); White Blood Cell 6.5 10^3/uL (4.4-10.8)
[2017-12-09 06:20] LABS: BUN/Creatinine Ratio 23.8; Calcium 7.3 mg/dL (8.5-10.1)
[2017-12-09] MEDS: ACCU-CHEK COMFORT CURVE STRIP VI SCH ×4 (06:50→22:30)
[2017-12-09] MEDS: InsuLIN REG 1unit/0.01ml Soln (100units/ml) SC SCH ×5 (06:50→22:34)
[2017-12-09] MEDS: Boost Glucose Control 8 Ounces PO SCH ×3 (08:18→17:39)
[2017-12-09] MEDS ORDERED: ACETAMINOPHEN 325 MG TAB PO PRN (09:30)
[2017-12-09] MEDS: CITALOPRAM HYDROBR 20 MG TAB PO SCH (09:48)
[2017-12-09] MEDS: MULTIPLE VITAMIN TAB PO SCH (09:49)
[2017-12-09] MEDS: FAMOTIDINE 20 MG TAB PO SCH (09:49)
[2017-12-09] MEDS: CHLORHEXIDINE 4% TOPICAL soln 473ML TOP SCH (09:49)
[2017-12-09] MEDS: SODIUM BICARBONATE 50ML VIAL 50 ML in SOD CHL 0.45% 1,000 ML IV SCH ×2 (09:49→22:10)
[2017-12-09] MEDS: PROPRANOLOL HCL 20 MG TAB PO SCH ×2 (09:55→22:11)
[2017-12-09] MEDS: FUROSEMIDE 20 MG TAB PO SCH (09:55)
[2017-12-09 10:00] VITALS: BP 134/74
[2017-12-09] MEDS ORDERED: INSULIN LANTUS (GLARGINE) 1 /0.01ml (100units/ml) SC SCH ×2 (10:00)
[2017-12-09] MEDS ORDERED: PATIENTS OWN MEDICATION PO SCH (10:00)
[2017-12-09] MEDS: RIFAXIMIN 550 MG TAB PO SCH ×2 (10:33→22:11)
[2017-12-09] MEDS: HYDROcodone-ACET 5/325MG TAB PO PRN ×3 (12:53→22:10)
[2017-12-09 13:00] VITALS: BP 129/63
[2017-12-09 17:00] VITALS: BP 146/59
[2017-12-09 21:43] VITALS: BP 132/67
[2017-12-10 04:45] VITALS: BP 126/60
[2017-12-10 05:53] LABS: Basophils # (auto) 0.1 uL; Eosinophils # (auto) 0.5 uL; Eosinophils % (auto) 8.5 % (0.0-7.0); Hematocrit 29.7 % (36.0-46.0); Hemoglobin 9.7 g/dL (12.2-16.2); Lymphocytes # (auto) 0.7 uL; Lymphocytes % (auto) 12.6 % (10.0-50.0); Mean Corpuscular Hemoglobin 27.3 pg (28.0-32.0); Mean Corpuscular Hgb Conc. 32.8 g/dL (32.0-36.0); Mean Corpuscular Volume 83.4 fL (80.0-100.0); Monocytes # (auto) 0.5 uL; Monocytes % (auto) 8.6 % (0.0-12.0); Neutrophils # (auto) 3.9 uL; Neutrophils % (auto) 69.3 % (37.0-80.0); Nucleated Red Blood Cells % 0.1 %; Platelet Count (auto) 108 10^3/uL (140-450); Red Blood Cells 3.56 10^6/uL (4.0-5.20); Red Cell Distribution Width 16.4 % (11.8-14.3); White Blood Cell 5.7 10^3/uL (4.4-10.8)
[2017-12-10 06:01] LABS: BUN/Creatinine Ratio 24.9; Calcium 7.8 mg/dL (8.5-10.1)
[2017-12-10] MEDS: LACTULOSE 20Gm/30ML SOLN PO SCH ×3 (06:15→22:38)
[2017-12-10] MEDS: SPIRONOLACTONE 25 MG TAB PO SCH ×2 (06:16→18:10)
[2017-12-10] MEDS: HYDROcodone-ACET 5/325MG TAB PO PRN ×3 (06:16→22:36)
[2017-12-10] MEDS: ACCU-CHEK COMFORT CURVE STRIP VI SCH ×4 (07:10→22:00)
[2017-12-10] MEDS: InsuLIN REG 1unit/0.01ml Soln (100units/ml) SC SCH ×4 (07:10→22:39)
[2017-12-10 07:45] VITALS: BP 137/65
[2017-12-10] MEDS: Boost Glucose Control 8 Ounces PO SCH ×3 (08:04→17:34)
[2017-12-10] MEDS: SODIUM BICARBONATE 50ML VIAL 50 ML in SOD CHL 0.45% 1,000 ML IV SCH ×2 (08:04→17:21)
[2017-12-10] MEDS: CITALOPRAM HYDROBR 20 MG TAB PO SCH (09:30)
[2017-12-10] MEDS: FUROSEMIDE 20 MG TAB PO SCH (09:31)
[2017-12-10] MEDS: PROPRANOLOL HCL 20 MG TAB PO SCH ×2 (09:31→22:36)
[2017-12-10] MEDS: MULTIPLE VITAMIN TAB PO SCH (09:31)
[2017-12-10] MEDS: FAMOTIDINE 20 MG TAB PO SCH (09:31)
[2017-12-10] MEDS: RIFAXIMIN 550 MG TAB PO SCH ×2 (09:32→22:38)
[2017-12-10] MEDS: INSULIN LANTUS (GLARGINE) 1 /0.01ml (100units/ml) SC SCH (09:32)
[2017-12-10] MEDS: CHLORHEXIDINE 4% TOPICAL soln 473ML TOP SCH (09:32)
[2017-12-10 12:53] VITALS: BP 136/72
[2017-12-10 17:31] VITALS: BP 142/90
[2017-12-10 21:46] VITALS: BP 126/68
[2017-12-11] MEDS: HYDROcodone-ACET 5/325MG TAB PO PRN ×4 (02:58→20:17)
[2017-12-11 05:00] VITALS: BP 119/64
[2017-12-11] MEDS: SPIRONOLACTONE 25 MG TAB PO SCH (05:16)
[2017-12-11] MEDS: ACCU-CHEK COMFORT CURVE STRIP VI SCH ×4 (05:17→22:04)
[2017-12-11] MEDS: InsuLIN REG 1unit/0.01ml Soln (100units/ml) SC SCH ×4 (05:22→22:13)
[2017-12-11 06:03] LABS: Basophils # (auto) 0 uL; Basophils % (auto) 0.8 % (0.0-2.0); Eosinophils # (auto) 0.4 uL; Eosinophils % (auto) 7.5 % (0.0-7.0); Hematocrit 29.7 % (36.0-46.0); Hemoglobin 9.8 g/dL (12.2-16.2); Lymphocytes # (auto) 0.8 uL; Lymphocytes % (auto) 14.5 % (10.0-50.0); Mean Corpuscular Hemoglobin 27.3 pg (28.0-32.0); Mean Corpuscular Volume 82.7 fL (80.0-100.0); Monocytes # (auto) 0.4 uL; Monocytes % (auto) 7.6 % (0.0-12.0); Neutrophils # (auto) 3.9 uL; Neutrophils % (auto) 69.6 % (37.0-80.0); Nucleated Red Blood Cells % 0.1 %; Platelet Count (auto) 114 10^3/uL (140-450); Red Blood Cells 3.59 10^6/uL (4.0-5.20); Red Cell Distribution Width 16.6 % (11.8-14.3); White Blood Cell 5.6 10^3/uL (4.4-10.8)
[2017-12-11 06:21] LABS: Calcium 7.9 mg/dL (8.5-10.1)
[2017-12-11 06:25] LABS: BUN/Creatinine Ratio 27.5
[2017-12-11 06:29] LABS: Potassium 5.6 mmol/L (3.5-5.1)
[2017-12-11] MEDS: FUROSEMIDE 20 MG TAB PO SCH (06:40)
[2017-12-11] MEDS ORDERED: SODIUM POLYSTYRENE SULF 15GM/60ML SUSP PR ONE (06:45)
[2017-12-11] MEDS: Boost Glucose Control 8 Ounces PO SCH ×3 (08:00→18:00)
[2017-12-11 08:27] VITALS: BP 110/55
[2017-12-11] MEDS: FAMOTIDINE 20 MG TAB PO SCH (09:49)
[2017-12-11] MEDS: MULTIPLE VITAMIN TAB PO SCH (09:49)
[2017-12-11] MEDS: LACTULOSE 20Gm/30ML SOLN PO SCH ×2 (09:50→22:00)
[2017-12-11] MEDS: RIFAXIMIN 550 MG TAB PO SCH ×2 (09:50→22:04)
[2017-12-11] MEDS: CITALOPRAM HYDROBR 20 MG TAB PO SCH (09:51)
[2017-12-11] MEDS: PROPRANOLOL HCL 20 MG TAB PO SCH ×2 (09:51→22:03)
[2017-12-11] MEDS: INSULIN LANTUS (GLARGINE) 1 /0.01ml (100units/ml) SC SCH (09:52)
[2017-12-11] MEDS: SODIUM BICARBONATE 650 MG TAB PO SCH ×2 (09:58→22:03)
[2017-12-11] MEDS: CHLORHEXIDINE 4% TOPICAL soln 473ML TOP SCH (10:53)
[2017-12-11 12:57] VITALS: BP 120/87
[2017-12-11] MEDS: SODIUM BICARBONATE 50ML VIAL 50 ML in SOD CHL 0.45% 1,000 ML IV SCH ×2 (13:11→14:45)
[2017-12-11 16:55] VITALS: BP 109/70
[2017-12-11 22:00] VITALS: BP 116/54
[2017-12-12] MEDS: SODIUM BICARBONATE 50ML VIAL 50 ML in SOD CHL 0.45% 1,000 ML IV SCH ×2 (01:10→11:45)
[2017-12-12 05:00] VITALS: BP 117/60
[2017-12-12 05:39] LABS: BUN/Creatinine Ratio 26.7; Basophils # (auto) 0 uL; Basophils % (auto) 0.8 % (0.0-2.0); Calcium 7.6 mg/dL (8.5-10.1); Eosinophils # (auto) 0.3 uL; Eosinophils % (auto) 6.9 % (0.0-7.0); Hematocrit 27.3 % (36.0-46.0); Lymphocytes # (auto) 0.7 uL; Mean Corpuscular Hemoglobin 27.5 pg (28.0-32.0); Mean Corpuscular Hgb Conc. 33.1 g/dL (32.0-36.0); Mean Corpuscular Volume 83.1 fL (80.0-100.0); Monocytes # (auto) 0.5 uL; Monocytes % (auto) 9.9 % (0.0-12.0); Neutrophils # (auto) 3.1 uL; Neutrophils % (auto) 66.4 % (37.0-80.0); Nucleated Red Blood Cells % 0.1 %; Platelet Count (auto) 113 10^3/uL (140-450); Potassium 4.9 mmol/L (3.5-5.1); Red Blood Cells 3.29 10^6/uL (4.0-5.20); Red Cell Distribution Width 16.5 % (11.8-14.3); White Blood Cell 4.6 10^3/uL (4.4-10.8)
[2017-12-12] MEDS: InsuLIN REG 1unit/0.01ml Soln (100units/ml) SC SCH ×3 (06:18→17:00)
[2017-12-12] MEDS: ACCU-CHEK COMFORT CURVE STRIP VI SCH ×3 (06:18→17:00)
[2017-12-12] MEDS: Boost Glucose Control 8 Ounces PO SCH ×2 (08:50→12:25)
[2017-12-12 08:55] VITALS: BP 126/66
[2017-12-12] MEDS: FAMOTIDINE 20 MG TAB PO SCH (10:08)
[2017-12-12] MEDS: LACTULOSE 20Gm/30ML SOLN PO SCH (10:08)
[2017-12-12] MEDS: CITALOPRAM HYDROBR 20 MG TAB PO SCH (10:08)
[2017-12-12] MEDS: PROPRANOLOL HCL 20 MG TAB PO SCH (10:08)
[2017-12-12] MEDS: SODIUM BICARBONATE 650 MG TAB PO SCH (10:08)
[2017-12-12] MEDS: MULTIPLE VITAMIN TAB PO SCH (10:08)
[2017-12-12] MEDS: FUROSEMIDE 20 MG TAB PO SCH (10:12)
[2017-12-12] MEDS: CHLORHEXIDINE 4% TOPICAL soln 473ML TOP SCH (10:12)
[2017-12-12] MEDS: HYDROcodone-ACET 5/325MG TAB PO PRN (10:19)
[2017-12-12] MEDS: RIFAXIMIN 550 MG TAB PO SCH (10:27)
[2017-12-12] MEDS: INSULIN LANTUS (GLARGINE) 1 /0.01ml (100units/ml) SC SCH (11:22)
[2017-12-12 13:08] VITALS: BP 116/59
== END 2017-12-12 17:45 | disposition home health service (06) | DRG 441 ==
LOC: EDBD 11:26 → ER 11:26 → OVERFLOW 11:27 → CENTRAL 19:30
PROVIDERS: ADMIT Internal Medicine; ATTEND Internal Medicine
DX: K72.90 Hepatic failure, unspecified without coma (principal); N17.1 Acute kidney failure with acute cortical necrosis; L89.159 Pressure ulcer of sacral region, unspecified stage; E44.0 Moderate protein-calorie malnutrition; E11.21 Type 2 diabetes mellitus with diabetic nephropathy; E11.22 Type 2 diabetes mellitus with diabetic chronic kidney disease; D69.59 Other secondary thrombocytopenia; E11.65 Type 2 diabetes mellitus with hyperglycemia; N18.4 Chronic kidney disease, stage 4 (severe); E87.2 Acidosis; E78.5 Hyperlipidemia, unspecified; D63.8 Anemia in other chronic diseases classified elsewhere; I12.9 Hypertensive chronic kidney disease with stage 1 through stage 4 chronic kidney disease, or unspecified chronic kidney disease; J44.9 Chronic obstructive pulmonary disease, unspecified; F17.200 Nicotine dependence, unspecified, uncomplicated; K21.9 Gastro-esophageal reflux disease without esophagitis; F32.9 Major depressive disorder, single episode, unspecified; M19.90 Unspecified osteoarthritis, unspecified site; Z82.49 Family history of ischemic heart disease and other diseases of the circulatory system; Z91.14 Patient's other noncompliance with medication regimen
CPT/HCPCS: 36415; 51702; 70450; 71045; 80048; 80053; 80307; 80320; 81001; 82140; 82962; 83036; 83605; 83735; 83880; 84484; 85025; 85610; 85730; 87040; 87081; 93005; 94761; 96360; 96361; 97163; J1815; J2405